=== PATIENT | male | born 1960 | race Caucasian/White ===

== ENCOUNTER → 2017-11-24 | Outpatient (CLI) | payer BC ==
[~2017-11-24] MED LIST: AMBIEN 5 MG TABL5 M1 PO; CIPROFLOXACIN500 M3 PO; FIBER LAXATIVE; FIBER LAXATIVE500 MG PO; FIBER0.52 GM PO; FLAGYL 250 MG250 MG PO; HYDROCODON-ACE1 EAC7 PO; IBUPROFEN 400400 M1 PO; MULTIVITAMINS PO; PERCOCET 5-3251 EACH PO; PRILOSEC 20 MG20 MG PO; VITAMIN D PO; VITAMIN E400 UNIT PO; ZEGERID 40 MG1 EACH PO
[2017-11-24 12:15] VITALS: BP 146/98
[2017-11-24 12:40] VITALS: BP 148/104
[2017-11-24 13:07] VITALS: BP 148/104
[2017-11-24 13:28] LABS: HEMATOCRIT 49.6 % (42.0-52.0); HEMOGLOBIN 16.8 gm/dL (14.0-18.0)
== END ==
LOC: OPONC 00:37
PROVIDERS: Internal Medicine
DX: D75.1 Secondary polycythemia (principal)
CPT/HCPCS: 95100